=== PATIENT | male | born 1985 | race Caucasian/White ===

== ENCOUNTER 2019-06-10 11:51 | Emergency (ER) | payer OTHER, SELFPAY ==
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
[2019-06-10 12:00] VITALS: BP 146/85; PULSE 96; RESP 16; TEMP 37.1; O2SAT 100
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
== END 2019-06-10 13:31 | disposition home or self-care (01) ==
PROVIDERS: Emergency Provider Family Medicine
DX: S16.1XXA Strain of muscle, fascia and tendon at neck level, initial encounter (principal); F17.200 Nicotine dependence, unspecified, uncomplicated; V43.62XA Car passenger injured in collision with other type car in traffic accident, initial encounter
CPT/HCPCS: 72050; 99283

== ENCOUNTER 2020-12-29 12:45 | Emergency (ER) | payer OTHER, SELFPAY ==
[2020-12-29] VITALS (7 sets, daily range): BP systolic 115–142; BP diastolic 77–85; PULSE 87–108; RESP 16–18; TEMP 36.8–37.2; O2SAT 94–99
--- NOTE | ~2020-12-29 | XR_ITS ---
EXAMINATION: XR chest 2V 12/29/2020 14:05 INDICATION: Midsternal chest pain PROCEDURE: 2 view chest COMPARISON: No prior studies for comparison. FINDINGS: The lungs are clear. The cardiomediastinal silhouette is within normal limits. There are no pleural effusions. There is no pneumothorax suspected. IMPRESSION: 1: NO ACUTE CARDIOPULMONARY DISEASE. Reviewed, dictated and finalized at location A.
--- NOTE | 2020-12-29 13:24 | ECG_ITS ---
Measurements Intervals [place] Rate: 107 P: 45 VA: 136 QRS: 52 QRSD: 86 T: 31 QT: 303 QTc: 405 Interpretive Statements SINUS TACHYCARDIA ABNORMAL ECG Electronically Signed On 12-29-2020 13:44:52 CDT by Emory Barber D.O.
[2020-12-29 13:48] LABS: Basophils Percent Auto 0.5 % (0.2-1.2); Eosinophils Absolute Auto 0.1 K/mm3 (0-0.3); Eosinophils Percent Auto 2.2 % (0-4.4); Hematocrit 46.8 % (42.0-52.0); Hemoglobin 15.2 g/dL (14.0-18.0); Immature Granulocyte Absolute 0.02 K/mm3 (0.00-0.031); Immature Granulocyte Percent A 0.3 % (0-0.5); Lymphocytes Absolute Auto 1.59 K/mm3 (0.9-3.2); Lymphocytes Percent Auto 27.5 % (18.3-44.2); Mean Corpuscular HGB Conc 32.5 g/dl (32-36); Mean Corpuscular Hemoglobin 27.7 pg (26-34); Mean Corpuscular Volume 85.4 fl (80-100); Monocytes Absolute Auto 0.5 K/mm3 (0.1-0.6); Monocytes Percent Auto 8.3 % (2.6-8.5); Neutrophils Absolute Auto 3.5 K/mm3 (1.3-6.7); Neutrophils Percent Auto 61.2 % (45.5-73.1); Platelet Count Result 235 k/mm3 (150-375); Red Blood Count 5.48 M/mm3 (4.6-6.20); Red Cell Distribution Width 14.1 % (11.5-14.5); White Blood Count 5.8 K/mm3 (4.5-10.0)
[2020-12-29 13:58] LABS: Partial Thromboplastin Time 24.8 SECONDS (22.3-36.8); Prothrombin Time 12.6 Seconds (11.1-14.7)
[2020-12-29 14:05] LABS: Anion Gap 9 mmol/L (8-16); Blood Urea Nitrogen 14 mg/dL (9-20); Calcium 9.8 mg/dL (8.4-10.2); Carbon Dioxide 25 mmol/L (22-30); Chloride 106 mmol/L (98-107); Estimated CRCL calculation 103 ml/min; Estimated Glomerular Filt Rate > 60; Glucose 79 mg/dL (65-110); Potassium 4.4 mmol/L (3.4-5.0); Sodium 140 mmol/L (137-145)
[2020-12-29 14:17] LABS: Troponin I < 0.012 ng/mL (0.000-0.034)
--- NOTE | 2020-12-29 16:38 | PC.NURSE ---
pt up to desk asking what wait time is. pt informed unable to tell pt wait time.
[2020-12-29 17:19] LABS: Troponin I < 0.012 ng/mL (0.000-0.034)
[2020-12-29] MEDS: SODIUM CHLORIDE 0.9% IV 1,000 ML 999 ML IV CONT (18:10)
--- NOTE | 2020-12-29 18:10 | ED.CHESTPAIN ---
HPI - Chest Pain General Chief Complaint: Chest Pain Stated Complaint: fast heart rate, post covid Time Seen by Provider: 12/29/20 17:37 Source: patient and RN notes reviewed Mode of arrival: ambulatory Limitations: no limitations History of Present Illness HPI narrative: This is a 35 year old male who presents for evaluation of an elevated heart rate and chest pain. Patient states he was diagnosed with COVID on 12/14/20. HE has had nonradiating midsternal chest pain since his diagnosis. He started noticing that his heart rate was elevated over the 3-4 days. He reports constant feeling of heart racing for 3 days and it is worse with activity. He notes his heart rate will increase to 140 with activity. He denies fever, chills, nausea, vomiting or diarrhea. He states he has been cutting back on use of his e vap. He also states he has been cutting back on caffeine for 2 weeks. HE reports he is constantly feeling like he is having a panic attack. Related Data Allergies Allergy/AdvReac Type Severity Reaction Status Date / Time No Known Allergies Allergy Unverified 10/14/14 08:57 Review of Systems Review of Systems: All systems reviewed & are unremarkable except as noted in HPI and below PMFSH Past Medical History Medical History No significant past medical history Surgical History Surgical History No significant past surgical history Social History Social History (Updated 12/29/20 @ 18:14 by Yelena Knowles MD) Smoking status: Current every day smoker Tobacco type: e-cigarettes/vaping Exam Const: General: no acute distress and alert Orientation/consciousness: patient oriented x3 Eyes: Pupils: Equal, round and reactive pupils present EOM: EOMs intact bilaterally Chest: Chest palpation & inspection: normal inspection of the chest Resp: Effort & Inspection: normal respiratory effort and no retractions Auscultation: clear to auscultation bilaterally Cardio: Rate: regular rate Rhythm: regular rhythm Heart sounds: no murmurs GI: GI Palp: Yes Soft to palpation, No Tenderness to palpation present (GI) and No Guarding due to palpation present (GI) Auscultation: normal bowel sounds Skin: General skin exam: normal color Rashes: no rashes Neuro: General: patient oriented x3, moves all extremities and CN's II-XI intact bilaterally Extrem: General: normal to inspection Psych: Mental Status: mental status grossly normal Affect: normal affect Course Reevaluation(s) Reevaluation #1: I discussed with patient labs are unremarkable. HE was slightly tachycardic . He was given IVF. Negative for d dimer. I discussed discharge plan to follow up with PCP. Date: 12/29/20 Time: 19:51 Vital Signs Vital signs: Vital Signs Temperature 98.9 F 12/29/20 13:22 Pulse Rate 108 H 12/29/20 13:22 Respiratory Rate 18 12/29/20 13:22 Blood Pressure 142/81 H 12/29/20 13:22 Pulse Oximetry 97 12/29/20 13:22 Temperature 98.2 F 12/29/20 15:38 Pulse Rate 87 12/29/20 19:11 Respiratory Rate 18 12/29/20 19:11 Blood Pressure 115/78 12/29/20 19:11 Pulse Oximetry 94 12/29/20 19:11 MDM - Chest Pain Lab Data Attestation: I reviewed the patient's lab results. Result diagrams: 12/29/20 13:36 12/29/20 13:36 Labs: Lab Results 12/29/20 12/29/20 12/29/20 Range/Units 13:36 13:36 13:36 WBC 5.8 (4.5-10.0) K/mm3 RBC 5.48 (4.6-6.20) M/mm3 Hgb 15.2 (14.0-18.0) g/dL Hct 46.8 (42.0-52.0) % MCV 85.4 (80-100) fl MCH 27.7 (26-34) pg MCHC 32.5 (32-36) g/dl RDW 14.1 (11.5-14.5) % Plt Count 235 (150-375) k/mm3 MPV 10.0 (7.4-10.4) fl Immature Gran % (Auto) 0.3 (0-0.5) % Neut % (Auto) 61.2 (45.5-73.1) % Lymph % (Auto) 27.5 (18.3-44.2) % Stewart % (Auto) 8.3 (2.6-8.5) % Eos % (Auto) 2.2 (
--- NOTE | 2020-12-29 18:14 | PC.NURSE ---
Talked to Modesta at 18:09 to add on D dimer and MG
[2020-12-29 18:20] LABS: Magnesium 2.2 mg/dL (1.6-2.3)
[2020-12-29 18:25] LABS: D Dimer 0.41 ug/mL (<0.48)
[2020-12-29] MEDS: KETOROLAC 15 MG/ML VIAL (*BKC) IV PUSH (18:36)
--- NOTE | 2020-12-29 19:14 | PC.NURSE ---
Report received and care of pt assumed at this time.
== END 2020-12-29 20:01 | disposition home or self-care (01) ==
PROVIDERS: Emergency Medicine; Emergency Provider General Practice; PCP Physician Assistant
DX: R00.2 Palpitations (principal); R00.0 Tachycardia, unspecified; F17.290 Nicotine dependence, other tobacco product, uncomplicated
CPT/HCPCS: 36415; 71046; 80048; 83735; 84484; 85025; 85380; 85610; 85730; 93005; 96361; 96374; 99284; J1885; J7030